=== PATIENT | male | born 2000 | race Caucasian/White ===

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

== ENCOUNTER 2022-04-13 21:30 | Emergency (ER) | payer MEDICAID ==
[~2022-04-13] VITALS: Ht 162.5 cm; Wt 54.5 kg
[~2022-04-13 21:30] MED LIST changes: +AZIT500T9 PO; +LEVO-55 PO
[2022-04-13] MEDS ORDERED: FAMOTIDINE 20 MG (PEPCID) TABLET PO ONE (22:00)
[2022-04-13] MEDS ORDERED: diphenhydrAMINE 25 MG TAB (BENADRYL) PO ONE (22:00)
--- NOTE | 2022-04-13 22:00 | ED General ---
General Stated Complaint: HIVES Source of Information: Patient Exam Limitations: No Limitations History of Present Illness Date Seen by Provider: Apr 13, 2022 Time Seen by Provider: 21:32 Initial Comments 21-year-old male with no pertinent past medical history coming in due to hives. Happening off and on for couple days for some of them, but mostly noticed them today along his right knee and left forearm. They seem to come and go, are itchy, not painful. Does not recall any new allergens such as any new foods, detergents, dyes, or anything that he can think of. This has happened in the past. He is taken no medicines for it. Denies any wheezing, shortness of breath, abdominal pain, nausea, vomiting, diarrhea, or any other concerns Allergies and Home Medications Allergies Coded Allergies: No Known Drug Allergies (Unverified , 03/22/20) Patient Home Medication List Home Medication List Reviewed: Yes Azithromycin (Azithromycin) 500 Mg Tablet, 1,000 MG PO ONCE Prescribed by: YENIFER MORELAND on 06/03/21 0004 Levofloxacin (Levofloxacin) 500 Mg Tablet, 500 MG PO DAILY Prescribed by: YENIFER MORELAND on 06/03/21 0004 Review of Systems Review of Systems Constitutional: No fever EENTM: No blurred vision Respiratory: No cough, No short of breath, No wheezing Cardiovascular: no symptoms reported Gastrointestinal: no symptoms reported Genitourinary: no symptoms reported Musculoskeletal: no symptoms reported Skin: see HPI Psychiatric/Neurological: No Symptoms Reported Hematologic/Lymphatic: No Symptoms Reported Immunological/Allergic: no symptoms reported All Other Systems Reviewed Negative Unless Noted: Yes Past Ibiqsbc-Pmwbrc-Sdhlpu Hx Patient Social History Tobacco Use?: No Use of E-Cig and/or Vaping dev: Yes E-Cig or Vaping type used: Nicotine Immunizations Up To Date Tetanus Booster (TDap): Unknown PED Vaccines UTD: Yes Seasonal Allergies Seasonal Allergies: No Past Medical History Surgeries: No Respiratory: No Cardiac: No Neurological: No Genitourinary: No Gastrointestinal: No Musculoskeletal: No Endocrine: No HEENT: No Cancer: No Psychosocial: Yes (BEHAVIOR PROBLEMS) Integumentary: No Blood Disorders: No Adverse Reaction/Blood Tranf: No Physical Exam Vital Signs Capillary Refill : Height, Weight, BMI Height: '" Weight: lbs. oz. kg; 18.00 BMI Method: General Appearance: No Apparent Distress, WD/WN HEENT: PERRL/EOMI, Normal ENT Inspection, Pharynx Normal Neck: Full Range of Motion, Normal Inspection, Non Tender, Supple Respiratory: Chest Non Tender, Lungs Clear, Normal Breath Sounds, No Accessory Muscle Use, No Respiratory Distress Cardiovascular: Regular Rate, Rhythm, No Edema, Normal Peripheral Pulses Gastrointestinal: Normal Bowel Sounds, Non Tender, Soft Back: Normal Inspection Extremity: Normal Capillary Refill, Normal Inspection, Normal Range of Motion, Non Tender, No Calf Tenderness, No Pedal Edema Neurologic/Psychiatric: Alert, No Motor/Sensory Deficits, Normal Mood/Affect Skin: Normal Color, Warm/Dry, Rash (Urticarial rash with some erythema that is blanching and Nikolsky negative to the left forearm and right knee) Lymphatic: No Adenopathy Progress/Results/Core Measures Suspected Sepsis SIRS Temperature: Pulse: Respiratory Rate: Blood Pressure / Mean: Results/Orders My Orders Orders - TEVIN MACHUCA MD Diphenhydramine Tablet (Benadryl Tablet) (04/13/22 22:00) Famotidine Tablet (Pepcid Tablet) (04/13/22 22:00) Vital Signs/I&O Capillary Refill : Progress Note : Progress Note Patient presented for urticaria. It seems very mild on exam and he has no signs of anaphylaxis. Given Benadryl and Pepcid and will get a prescription for Zyrtec. Should follow-up with PCP Departure Impression Primary Impression: Urticaria Disposition: 01 HOME, SELF-CARE Condition: Stable Departure-Patient Inst. Decision time for Depature: 21:59 Referrals: GEOVANY AMEZQUITA APRN (PCP/Family) Primary Care Physician Patient Instructions: Hives Add. Discharge Instructions: You do have hives also known as urticaria. You can take Benadryl at home when they occur. Otherwise I Rama put you on a prescription called Zyrtec. Hives are not dangerous, but typically can be itchy. If you begin wheezing with them and feel very short of breath and I would want you to present to the ER. Begin taking a food diary to see if he can associate them with any particular foods. Scripts Cetirizine HCl (Zyrtec) 10 Mg Tablet 10 MG PO DAILY for 30 Days, #30 TAB Prov: TEVIN MACHUCA MD 04/13/22 Work/School Note: Work Release Form Date Seen in the Emergency Department: Apr 13, 2022 Return to Work: Apr 14, 2022 Restrictions: No Restrictions TEVIN MACHUCA MD Apr 13, 2022 22:00
[2022-04-13] MEDS ORDERED: CETI10TA49 PO (22:02)
[2022-04-13 22:07] VITALS: BP 112/76
== END 2022-04-13 22:07 | disposition home or self-care (01) ==
LOC: EDUNIT# 21:30 → ER FS 21:31
DX: L50.9 Urticaria, unspecified (principal); F17.290 Nicotine dependence, other tobacco product, uncomplicated; Z28.310 Unvaccinated for COVID-19
CPT/HCPCS: 99283